=== PATIENT | male | born 1945 | race African-American/Black ===

== ENCOUNTER 2019-02-11 15:55 | Inpatient (IN) | payer MEDICARE, OTHER ==
[~2019-02-11] VITALS: Ht 190.5 cm; Wt 114.3 kg
[~2019-02-11 15:55] MED LIST: ASPI-518 PO; ATOR20TA65 PO; DABI150C PO; DOXA4TAB3 PO; FOSI40TA5 PO; GABA-531; GLIP1TAB PO; HYDR12.54; METF500T; METO-411 PO; SITA100T11
[2019-02-11 16:59] LABS: BASOPHILS % 0.5 % (0.0-2.0); EOSINOPHILS % 1.6 % (0.0-5.0); HEMOGLOBIN. 12.5 g/dL (14.0-18.0); LYMPHOCYTES % 29.3 % (20.0-50.0); MEAN CORPUSCULAR HEMOGLOBIN 29.9 pg (28.0-32.0); MEAN CORPUSCULAR VOLUME 90.6 fL (80.0-94.0); MEAN PLATELET VOLUME 8.2 fl (7.4-10.4); MONOCYTES % 7.9 % (2.0-8.0); NEUTROPHILS % 60.7 % (40.0-76.0); PLATELET 206 x1000/uL (130-400); RED BLOOD CELL COUNT 4.19 mill/uL (4.7-6.1); RED CELL DISTRIBUTION WIDTH 15.6 % (11.6-14.6)
[2019-02-11 17:03] LABS: CHLORIDE 103 mEq/L (98-107)
[2019-02-11 17:04] LABS: INR 1.2; PROTHROMBIN TIME 12.7 sec (9.6-11.0)
[2019-02-11 17:07] LABS: ETHANOL BLOOD < 10 mg/dL
[2019-02-11] MEDS ORDERED: SODIUM CHLORIDE 0.9% 1,000 ML IV ONE (19:09)
[2019-02-11] MEDS ORDERED: IOHEXOL-350 100 ML BOTTLE ONE (19:19)
[2019-02-11] MEDS ORDERED: DIPHENHYDRAMINE 50MG/ML VIAL IV PRN (19:45)
[2019-02-11] MEDS ORDERED: MAGNESIUM/ALUMINUM HYDROXIDE/SIMETHICONE 30ML UDC PO PRN (19:45)
[2019-02-11] MEDS ORDERED: ENOXAPARIN 40MG/0.4ML SYR SUBCUT SCH (19:45)
[2019-02-11] MEDS ORDERED: ACETAMINOPHEN 325MG TABLET PO PRN (19:45)
[2019-02-11] MEDS ORDERED: DOCUSATE SODIUM 100MG CAPSULE PO PRN (19:45)
[2019-02-11] MEDS ORDERED: CLONIDINE 0.1MG TABLET PO PRN (19:45)
[2019-02-11] MEDS ORDERED: ONDANSETRON HCL 4MG/2ML INJ IV PRN (19:45)
[2019-02-11] MEDS ORDERED: GUAIFENESIN 200MG/10ML SUGAR FREE UDC PO PRN (19:45)
[2019-02-11] MEDS ORDERED: HYDROCODONE/ACETAMINOPHEN 5/325MG TABLET PO PRN (19:45)
[2019-02-11] MEDS ORDERED: IPRATROPIUM/ALBUTEROL 0.5-3(2.5)MG/3ML NEB INH PRN (19:45)
[2019-02-11 20:19] LABS: PHOSPHORUS 3.2 mg/dL (2.5-4.9)
[2019-02-12] VITALS (7 sets, daily range): BP systolic 131–152; BP diastolic 80–97
[2019-02-12] MEDS ORDERED: RIVA20TA PO (00:19)
[2019-02-12] MEDS ORDERED: ALLO100T PO (00:19)
[2019-02-12] MEDS ORDERED: METF-816 PO (00:19)
[2019-02-12] MEDS ORDERED: TAMS0.4C31 PO (00:19)
[2019-02-12] MEDS ORDERED: GLIM4TAB2 PO (00:19)
[2019-02-12] MEDS ORDERED: NIFE90TA34 PO (00:19)
[2019-02-12] MEDS ORDERED: ATOR40TA70 PO (00:19)
[2019-02-12] MEDS ORDERED: BENZ200C52 PO (00:19)
[2019-02-12] MEDS ORDERED: LOPE2CAP PO (00:27)
[2019-02-12] MEDS ORDERED: LIRA0.6P SQ (00:27)
[2019-02-12 00:43] LABS: CREATINE KINASE MB FRACTION 3.9 ng/mL (0.5-3.6)
[2019-02-12] MEDS ORDERED: DEXTROSE 50% WATER 50ML SYRINGE IV PRN (02:45)
[2019-02-12] MEDS: BLOOD SUGAR DIAGNOSTIC STRIP TEST SCH ×4 (06:50→20:51)
[2019-02-12 07:12] LABS: HEMATOCRIT. 38.1 % (42.0-52.0); HEMOGLOBIN. 12.8 g/dL (14.0-18.0); MEAN CORPUSCULAR HEMOGLOBIN 30.3 pg (28.0-32.0); MEAN PLATELET VOLUME 8.5 fl (7.4-10.4); PLATELET 216 x1000/uL (130-400); RED BLOOD CELL COUNT 4.23 mill/uL (4.7-6.1); RED CELL DISTRIBUTION WIDTH 15.4 % (11.6-14.6)
[2019-02-12 08:27] LABS: CHLORIDE 104 mEq/L (98-107)
[2019-02-12 08:53] LABS: CREATINE KINASE 312 IU/L (39-308)
[2019-02-12 08:54] LABS: HDL CHOLESTEROL 45 mg/dL (40-59); LDL CHOLESTEROL 84 mg/dL (5-100)
[2019-02-12 08:59] LABS: CREATINE KINASE MB FRACTION 3.1 ng/mL (0.5-3.6)
[2019-02-12] MEDS ORDERED: ENOXAPARIN 30MG/0.3ML SYR SUBCUT SCH (09:00)
[2019-02-12] MEDS: INSULIN LISPRO 100 UNITS/ML SUBCUT SCH ×4 (09:02→20:51)
[2019-02-12] MEDS ORDERED: POTASSIUM CHLORIDE 20MEQ TABLET SR PO NR (09:45)
[2019-02-12 11:35] LABS: PLATELET ESTIMATE NORMAL
[2019-02-12] MEDS ORDERED: RIVAROXABAN 20 MG TABLET PO SCH (17:00)
[2019-02-13] VITALS: BP 146/81
[2019-02-13 04:00] VITALS: BP 152/82
[2019-02-13] MEDS: BLOOD SUGAR DIAGNOSTIC STRIP TEST SCH ×2 (05:49→12:50)
[2019-02-13 06:05] LABS: CLARITY URINE CLEAR (CLEAR); COLOR URINE YELLOW (YELLOW); KETONES URINE NEGATIVE (NEGATIVE); LEUKOCYTE ESTERASE URINE NEGATIVE (NEGATIVE); NITRITE URINE NEGATIVE (NEGATIVE); OCCULT BLOOD URINE NEGATIVE (NEGATIVE); PROTEIN URINE 1+ (NEGATIVE); SPECIFIC GRAVITY URINE 1.008 (1.005-1.030); UROBILINOGEN URINE 0.2 E.U./dL (0.2-1.0)
[2019-02-13 06:38] LABS: BASOPHILS % 0.6 % (0.0-2.0); EOSINOPHILS % 2.2 % (0.0-5.0); HEMOGLOBIN. 13.4 g/dL (14.0-18.0); LYMPHOCYTES % 30.5 % (20.0-50.0); MEAN CORPUSCULAR HEMOGLOBIN 30.3 pg (28.0-32.0); MEAN CORPUSCULAR VOLUME 90.6 fL (80.0-94.0); MEAN PLATELET VOLUME 8.4 fl (7.4-10.4); NEUTROPHILS % 59.7 % (40.0-76.0); PLATELET 208 x1000/uL (130-400); RED BLOOD CELL COUNT 4.42 mill/uL (4.7-6.1); RED CELL DISTRIBUTION WIDTH 15.2 % (11.6-14.6)
[2019-02-13 07:26] LABS: CHLORIDE 105 mEq/L (98-107)
[2019-02-13 07:33] LABS: PHOSPHORUS 3.6 mg/dL (2.5-4.9)
[2019-02-13] MEDS: INSULIN LISPRO 100 UNITS/ML SUBCUT SCH ×2 (07:58→12:53)
[2019-02-13 08:00] VITALS: BP 168/93
[2019-02-13 12:00] VITALS: BP 164/95
[2019-02-13 14:07] VITALS: BP 163/95
== END 2019-02-13 16:10 | disposition home or self-care (01) | DRG 69 ==
LOC: ER 15:55 → 6WST 19:23 → EDBEDREQSVC 21:25 → EDBEDREQTM 21:25 → ENRESERV 21:29 → 6WST 02-12 03:05 → UNDODISIN 02-13 14:22
PROVIDERS: ADMIT Internal Medicine; ATTEND Internal Medicine
DX: G45.9 Transient cerebral ischemic attack, unspecified (principal); J96.91 Respiratory failure, unspecified with hypoxia; E44.1 Mild protein-calorie malnutrition; E87.2 Acidosis; G93.40 Encephalopathy, unspecified; J81.1 Chronic pulmonary edema; N17.9 Acute kidney failure, unspecified; G81.91 Hemiplegia, unspecified affecting right dominant side; R47.01 Aphasia; L73.2 Hidradenitis suppurativa; D64.9 Anemia, unspecified; E11.22 Type 2 diabetes mellitus with diabetic chronic kidney disease; E66.01 Morbid (severe) obesity due to excess calories; E78.5 Hyperlipidemia, unspecified; E87.6 Hypokalemia; H91.90 Unspecified hearing loss, unspecified ear; I13.10 Hypertensive heart and chronic kidney disease without heart failure, with stage 1 through stage 4 chronic kidney disease, or unspecified chronic kidney disease; I48.2 Chronic atrial fibrillation; N18.2 Chronic kidney disease, stage 2 (mild); Z82.49 Family history of ischemic heart disease and other diseases of the circulatory system; Z83.3 Family history of diabetes mellitus; Z87.891 Personal history of nicotine dependence; Z87.81 Personal history of (healed) traumatic fracture; Z68.31 Body mass index [BMI] 31.0-31.9, adult; Z88.8 Allergy status to other drugs, medicaments and biological substances; Z79.899 Other long term (current) drug therapy; Z79.84 Long term (current) use of oral hypoglycemic drugs; Z79.82 Long term (current) use of aspirin; Z79.01 Long term (current) use of anticoagulants
CPT/HCPCS: 36415; 70496; 70498; 70551; 71045; 80048; 80061; 80320; 82550; 82553; 82962; 83036; 83605; 83721; 83735; 84100; 84145; 84443; 84484; 93005; 93306; 93970; 96360; 97162; 97165; 99285; J1650; J1815; J7030; J7620; Q9967; G0480